=== PATIENT | male | born 1965 | race African-American/Black ===

== ENCOUNTER 2022-02-21 23:26 | Observation (INO) | payer OTHER ==
[2022-02-22] MEDS ORDERED: Morphine 4 MG/ML VIAL ONE (00:04)
[2022-02-22 00:52] LABS: Hemoglobin 12.4 g/dL (13.5-17.5); Mean Corpuscular HGB CONC 33.2 g/dL (32.0-36.0); Mean Corpuscular Hemoglobin 26.8 pg (27.0-33.0); Mean Corpuscular Volume 80.8 fl (81.2-95.1); Mean Platelet Volume 10.1 fl (7.4-10.4); Platelet Count 224 10x3/uL (150-450); RBC Distribution Width 14.1 % (11.5-14.5); Red Blood Cell (RBC) Count 4.63 10x6/uL (4.32-5.72); White Blood Cell (WBC) Count 3.9 10x3/uL (3.5-10.5)
[2022-02-22 00:54] LABS: #Neutrophils 1.1 10x3/uL (1.5-8.4); %Neutrophils 29.4 % (40.0-75.0)
[2022-02-22 00:59] LABS: ALT (SGPT) 15 U/L (8-55); AST (SGOT) 24 U/L (5-34); Albumin 4.4 g/dL (3.5-5.0); Alkaline Phosphatase 82 U/L (40-110); Anion Gap 15 mmol/L (10-20); BUN (Urea Nitrogen) 6 mg/dL (8.4-25.7); Bilirubin, Total 0.3 mg/dL (0.2-1.2); Calc. Creatinine Clearance 0 mL/min (70-130); Carbon Dioxide 26 mmol/L (22-29); Chloride 103 mmol/L (98-107); Globulin 2.7 g/dL (2.4-3.5); Glucose 110 mg/dL (70-105); Lipase 19 U/L (8-78); Protein, Total 7.1 g/dL (6.0-8.3); Sodium 140 mmol/L (136-145)
[2022-02-22 01:06] LABS: MDiff Complete? YES; Manual Diff?? YES
[2022-02-22 01:36] LABS: Eosinophils 1 % (0-10); Lymphocytes 49 % (21-51); Monocytes 10 % (0-10); Neutrophil 31 % (42-75); Reactive Lymphocytes 7 % (0-10)
[2022-02-22 01:38] LABS: Platelet Morphology Comment Appears Adequate
[2022-02-22 01:42] LABS: Anisocytosis SLIGHT = 6-15 cells (100X) (0-5/hpf); Target Cells SLIGHT = 2-5 cells (100X) (0-1/hpf)
[2022-02-22 02:21] LABS: SARS-CoV-2 NAA Rapid Test Not Detected (NotDetected)
[2022-02-22] MEDS ORDERED: Ondansetron PF 4 MG/2 ML Vial ONE (02:31)
[2022-02-22] MEDS ORDERED: Nitroglycerin 0.4 MG TAB (25 Tab Bottle) SL PRN (04:14)
[2022-02-22 05:44] VITALS: BMI 37.8
[2022-02-22] MEDS: Aspirin Chewable 81 MG TAB PO SCH (08:54)
[2022-02-22] MEDS: Enoxaparin Sodium 40 MG/0.4 ML SYRINGE SC SCH (08:54)
[2022-02-22] MEDS ORDERED: Lisinopril 20 MG TAB PO SCH (09:05)
[2022-02-22] MEDS ORDERED: FLUoxetine HCl 20 MG CAP PO SCH (09:15)
[2022-02-22] MEDS ORDERED: glipiZIDE 5 MG TAB PO SCH (09:15)
[2022-02-22] MEDS ORDERED: Atorvastatin Calcium 20 MG TAB PO SCH (21:00)
[2022-02-22] MEDS ORDERED: carBAMazepine 200 MG TAB PO SCH (21:00)
[2022-02-22] MEDS ORDERED: Aripiprazole 10 MG TAB PO SCH (21:00)
[2022-02-23 04:51] LABS: Cardiac Risk 5.7 (Less than 4.5)
[2022-02-23] MEDS ORDERED: Hydrochlorothiazide 25 MG TAB PO SCH (09:00)
[2022-02-23] MEDS ORDERED: FLUoxetine HCl 20 MG CAP PO SCH (09:00)
[2022-02-23] MEDS ORDERED: glipiZIDE 5 MG TAB PO SCH (09:00)
[2022-02-23] MEDS ORDERED: Aspirin 81 mg Enteric Coated Tablet PO SCH (09:00)
[2022-02-23] MEDS: Aspirin Chewable 81 MG TAB PO SCH (09:05)
[2022-02-23] MEDS: Enoxaparin Sodium 40 MG/0.4 ML SYRINGE SC SCH (09:06)
[2022-02-23 11:55] VITALS: BP 137/82; TEMP 98
== END 2022-02-23 15:05 | disposition home or self-care (01) ==
LOC: CSHERS 23:26 → EEVIPCON 23:26 → CSHTELE 02-22 05:16
PROVIDERS: ADMIT Hospitalist; ATTEND Hospitalist
DX: R07.89 Other chest pain (principal); E78.5 Hyperlipidemia, unspecified; I11.9 Hypertensive heart disease without heart failure; F20.9 Schizophrenia, unspecified; E11.9 Type 2 diabetes mellitus without complications; Z87.891 Personal history of nicotine dependence; Z79.82 Long term (current) use of aspirin; Z79.84 Long term (current) use of oral hypoglycemic drugs; Z79.899 Other long term (current) drug therapy; Z91.010 Allergy to peanuts; Z20.822 Contact with and (suspected) exposure to COVID-19
CPT/HCPCS: 36415; 36416; 71045; 80053; 80061; 83690; 84484; 85025; 93005; 93010; 93306; 94760; 96372; 96374; 96375; G0378; J1650; J2270; J2405; U0002